=== PATIENT | female | born 1985 | race Two or more races ===

== ENCOUNTER 2020-05-13 14:34 | Emergency (ER) | payer OTHER ==
[~2020-05-13] VITALS: Ht 165.1 cm; Wt 85.0 kg
[~2020-05-13 14:34] MED LIST: PREN-59 PO
--- NOTE | 2020-05-13 14:56 | NUR ---
DELIVERED HEALTHY ON ; DENIES ANY PROBLEMS W/ AND DELIVERY. HAS BEEN TAKING TYLENOL Q 6 HRS STARTING SUNDAY FOR CRAMPING. TOOK BISACODYL 5MG X 3 AND SENNOSIDES 15MG X 2 ABOUT NOON. LAST BM: SUNDAY. DENIES N/V. DENIES TAKING OTHER PAIN MED. PT IS ; HAS PUMPED TODAY.
--- NOTE | 2020-05-13 15:03 | NUR ---
DR KHAN AT BS FOR EXAM
--- NOTE | 2020-05-13 15:11 | NUR ---
TO RADIOLOGY PER BUTCH
--- NOTE | 2020-05-13 15:41 | NUR ---
RETURNED FROM RADIOLOGY. DENIES PAIN CURRENTLY.
[2020-05-13] MEDS ORDERED: MAGNESIUM CITRATE 300ML ORAL SOL PO ONE (16:00)
[2020-05-13] MEDS ORDERED: BISACODYL 5 MG EC TABLET PO ONE (16:00)
--- NOTE | 2020-05-13 16:22 | NUR ---
DEONTE ENEMA ORDERED FROM [facility]
[2020-05-13 16:30] VITALS: BP 126/85
[2020-05-13] MEDS ORDERED: BISACODYL 5 MG EC TABLET ONE (16:35)
[2020-05-13] MEDS ORDERED: MAGNESIUM CITRATE 300ML ORAL SOL ONE (16:35)
--- NOTE | 2020-05-13 16:50 | NUR ---
PT ASKED IF SHE COULD DO THE FLEETS ENEMA AND TAKE THE MAG CITRATE AT HOME. ERP CONSULTED; AGREED TO PLAN. DULCOLAX GIVEN PO. ENEMA INSTRUCTIONS DISCUSSED W/ PT. MAG CITRATE DOSING INSTRUCTIONS DISCUSSED. URGED PT TO INCREASE HER WATER INTAKE. PT VERBALIZED UNDERSTANDING OF ALL INSTRUCTIONS.
== END 2020-05-13 17:03 | disposition home or self-care (01) ==
LOC: ED 16:16
DX: K59.00 Constipation, unspecified (principal); R10.30 Lower abdominal pain, unspecified
CPT/HCPCS: 74021; 99283